=== PATIENT | female | born 1960 | race Caucasian/White ===

== ENCOUNTER 2020-12-24 14:54 | Outpatient (REF) | payer OTHER, SELFPAY ==
--- NOTE | ~2020-12-24 | MM_ITS ---
EXAMINATION: MM SCREENING DIGITAL BREAST TOMOSYNTHESIS, BILATERAL CLINICAL INFORMATION: Screening. Asymptomatic. The lifetime risk of breast cancer based on the Tyrer-Cuzick Model is 8.2%. COMPARISON: Mammography: December 19, 2019 and studies dating back to June 09, 2012 TECHNIQUE: Digital breast tomosynthesis is performed in both the craniocaudal and mediolateral oblique views along with computer-aided detection (CAD). Synthesized 2D images are generated from the tomosynthesis. FINDINGS: The breasts are heterogeneously dense, which may obscure small masses (ACR BI-RADS breast composition Category c). There are no significant masses, abnormal calcifications, or other abnormalities. MM/MM tomosynthesis screening BI IMPRESSION: There are no significant changes from prior study. ASSESSMENT: BI-RADS 1: Negative RECOMMENDATION: Routine annual mammography screening. This patient's information was entered into a reminder system with a target due date for their next mammogram.
== END 2020-12-24 14:55 | disposition home or self-care (01) ==
LOC: HO.MAMMO 14:54
PROVIDERS: Visit Provider Obstetrics & Gynecology Gynecology
DX: Z12.31 Encounter for screening mammogram for malignant neoplasm of breast (principal)
CPT/HCPCS: 77063; 77067

== ENCOUNTER 2022-01-16 08:47 | Outpatient (REF) | payer OTHER, SELFPAY ==
--- NOTE | ~2022-01-16 | XR_ITS ---
EXAMINATION: XR FOOT, RIGHT CLINICAL INFORMATION: M79.673 - Pain in unspecified foot COMPARISON: None TECHNIQUE: AP, lateral, and oblique views of the right foot. FINDINGS: The toes are superimposed on the lateral view. The oblique view the chest nondisplaced fracture of neck fourth toe proximal phalanx. No dislocation or destructive process. The remainder the bony structures appear intact. There is no erosive change. Mild hallux valgus of approximately 15 degrees. XR/XR foot RT min 3V IMPRESSION: -Suspect fracture neck fourth toe proximal phalanx. Clinically correlate. -Mild hallux valgus.
== END 2022-01-16 08:48 | disposition home or self-care (01) ==
LOC: HO.HOSX 08:47
PROVIDERS: Visit Provider Physician Assistant
DX: M79.671 Pain in right foot (principal)
CPT/HCPCS: 73630

== ENCOUNTER 2022-01-21 10:03 | Outpatient (REF) | payer OTHER, SELFPAY ==
--- NOTE | ~2022-01-21 | MM_ITS ---
EXAMINATION: MM SCREENING DIGITAL BREAST TOMOSYNTHESIS, BILATERAL CLINICAL INFORMATION: Screening. Asymptomatic. The lifetime risk of breast cancer based on the Tyrer-Cuzick Model is 10.4%. COMPARISON: Mammography: 12/24/2020 and studies dating back to 06/17/2014. TECHNIQUE: Digital breast tomosynthesis was performed in both the craniocaudal and mediolateral oblique views along with computer-aided detection (CAD). Synthesized 2D images were generated from the tomosynthesis. FINDINGS: There are scattered areas of fibroglandular density (ACR BI-RADS breast composition Category b). There is a stable parenchymal pattern of the right breast without new abnormal mass or suspicious grouping of microcalcifications.. About the deep superior medial aspect of the left breast, there is a region of architectural distortion which appears somewhat more prominent than on the prior study and appears to have a few calcifications within it. Recommend spot magnification views in 90 degree mediolateral view and craniocaudal view. MM/MM tomosynthesis screening BI IMPRESSION: Left breast density for further evaluation as described. ASSESSMENT: BI-RADS 0: Incomplete - Need Additional Imaging Evaluation RECOMMENDATION: 1. Additional views of the left breast. 2. Targeted ultrasound, if warranted, after review of the additional views. 3. Radiology department staff will contact the patient for additional imaging. This patient's information was entered into a reminder system with a target due date for their next mammogram.
== END 2022-01-21 10:04 | disposition home or self-care (01) ==
LOC: HO.MAMMO 10:03
PROVIDERS: PCP Physician Assistant Medical; Visit Provider Obstetrics & Gynecology
DX: Z12.31 Encounter for screening mammogram for malignant neoplasm of breast (principal)
CPT/HCPCS: 77063; 77067

== ENCOUNTER 2022-01-27 09:17 | Outpatient (REF) | payer OTHER, SELFPAY ==
--- NOTE | ~2022-01-27 | MM_ITS ---
EXAMINATION: MM DIAGNOSTIC DIGITAL MAMMOGRAPHY, LEFT CLINICAL INFORMATION: Recall from screening for question of architectural changes and calcifications upper inner left breast. TC score 10%. COMPARISON: Mammography: 01/21/2022 and multiple prior exams dating back to 05/01/2009. TECHNIQUE: Digital mammography is performed in the following views: Magnification CC, magnification ML. FINDINGS: There are scattered areas of fibroglandular density (ACR BI-RADS breast composition Category b). The parenchymal pattern is similar to multiple prior studies. There is no developing density or architectural abnormality. There is no interval mass or abnormal calcifications. There are no significant changes from prior studies. Results are discussed with the patient at time of visit. MM/MM added views LT IMPRESSION: Additional views show fibroglandular pattern similar to multiple prior exams. No developing density or architectural abnormality or abnormal calcifications. ASSESSMENT: BI-RADS 2: Benign RECOMMENDATION: Routine annual mammography screening. This patient's information was entered into a reminder system with a target due date for their next mammogram.
== END 2022-01-27 09:18 | disposition home or self-care (01) ==
LOC: HO.MAMMO 09:17
PROVIDERS: Visit Provider Obstetrics & Gynecology
DX: N64.89 Other specified disorders of breast (principal)
CPT/HCPCS: 77065

== ENCOUNTER 2022-12-11 06:17 | Outpatient (REF) | payer OTHER, SELFPAY ==
--- NOTE | ~2022-12-11 | XR_ITS ---
EXAMINATION: XR HAND, LEFT CLINICAL INFORMATION: Left hand pain. COMPARISON: None available. TECHNIQUE: PA, lateral, and oblique views of the left hand. FINDINGS: The bones and soft tissues are normal. No fracture. Alignment is anatomic. Joint spaces are maintained. No erosions or soft tissue calcifications. XR/XR hand LT min 3V IMPRESSION: Normal left hand.
== END 2022-12-11 06:18 | disposition home or self-care (01) ==
LOC: HO.HOSX 06:17
PROVIDERS: Visit Provider Physician Assistant
DX: M18.12 Unilateral primary osteoarthritis of first carpometacarpal joint, left hand (principal)
CPT/HCPCS: 73130

== ENCOUNTER 2023-02-12 08:08 | Outpatient (REF) | payer OTHER, SELFPAY ==
--- NOTE | ~2023-02-12 | MM_ITS ---
EXAMINATION: MM SCREENING DIGITAL BREAST TOMOSYNTHESIS, BILATERAL CLINICAL INFORMATION: Screening. Asymptomatic. COMPARISON: Mammography: This study is compared with prior exams dating back to 2010. TECHNIQUE: Digital breast tomosynthesis is performed in both the craniocaudal and mediolateral oblique views along with computer-aided detection (CAD). Synthesized 2D images are generated from the tomosynthesis. FINDINGS: There are scattered areas of fibroglandular density (ACR BI-RADS breast composition Category b). There is a 1 view asymmetry in the right breast anterior one third, medial aspect, seen best on the CC projection. No definite MLO correlate. Recommend small paddle spot compression view, as well as a 90 degree right mediolateral view. There are no suspicious findings in the left breast. Stable parenchymal pattern. MM/MM tomosynthesis screening BI IMPRESSION: 1 view asymmetry right breast anterior one third medially, for which spot compression cc view is recommended, as well as a full-field right mediolateral view. Ultrasound should be scheduled at the discretion of the interpreting radiologist. ASSESSMENT: BI-RADS BI-RADS 0 - Incomplete: Needs additional Imaging. RECOMMENDATION: 1. Additional views of the right breast. 2. Targeted ultrasound if warranted after review of the additional views. 3. Radiology department staff will contact the patient for additional imaging. Additional Imaging required This examination should not preclude the clinical evaluation of a suspicious palpable abnormality.
== END 2023-02-12 08:09 | disposition home or self-care (01) ==
LOC: HO.MAMMO 08:08
PROVIDERS: PCP Physician Assistant Medical; Visit Provider Physician Assistant Medical
DX: Z12.31 Encounter for screening mammogram for malignant neoplasm of breast (principal)
CPT/HCPCS: 77063; 77067

== ENCOUNTER → 2023-02-12 08:15 | Outpatient (BNV) | payer OTHER, SELFPAY | PROVIDERS: PCP Physician Assistant Medical; Visit Provider Radiology Diagnostic Radiology | DX: Z12.31 Encounter for screening mammogram for malignant neoplasm of breast (principal) | CPT/HCPCS: 77063; 77067 ==

== ENCOUNTER 2023-03-16 13:26 | Outpatient (REF) | payer OTHER, SELFPAY ==
--- NOTE | ~2023-03-16 | MM_ITS ---
EXAMINATION: MM DIAGNOSTIC DIGITAL BREAST TOMOSYNTHESIS, RIGHT CLINICAL INFORMATION: Follow-up one view asymmetry previously seen medial right breast, CC view only. COMPARISON: Mammography: Screening mammography 02/12/2023. TECHNIQUE: Digital breast tomosynthesis is performed. 2D images are generated from the tomosynthesis. The following views are obtained: Full-field 3-D digital right lateral medial view, full field 3-D digital right CC rolled medial and rolled lateral views, and 3-D right spot compression CC view. FINDINGS: There are scattered areas of fibroglandular density (ACR BI-RADS breast composition Category b). Additional views show no persistent mass, architectural abnormality, or abnormal calcifications. The previous finding in question is consistent with superimposition artifact of normal overlapping breast tissue. MM/MM tomosynthesis added views R IMPRESSION: No persistent findings suspicious for malignancy. Recommend the patient return to routine annual bilateral screening. ASSESSMENT: BI-RADS BI-RADS 1 - Negative RECOMMENDATION: 1 year F/U Results were provided to the patient at time of visit by the technologist. This patient's information was entered into a reminder system with a target due date for their next mammogram.
== END 2023-03-16 13:27 | disposition home or self-care (01) ==
LOC: HO.MAMMO 13:26
PROVIDERS: PCP Physician Assistant Medical; Visit Provider Physician Assistant Medical
DX: N64.89 Other specified disorders of breast (principal)
CPT/HCPCS: 77061; 77065

== ENCOUNTER → 2023-03-16 13:30 | Outpatient (BNV) | payer OTHER, SELFPAY | PROVIDERS: PCP Physician Assistant Medical; Visit Provider Radiology Diagnostic Radiology | DX: R92.8 Other abnormal and inconclusive findings on diagnostic imaging of breast (principal) | CPT/HCPCS: 77061; 77065 ==

== ENCOUNTER 2024-03-30 08:58 | Outpatient (REF) | payer OTHER, SELFPAY ==
--- NOTE | ~2024-03-30 | MM_ITS ---
EXAMINATION: MM SCREENING DIGITAL BREAST TOMOSYNTHESIS, BILATERAL CLINICAL INFORMATION: Screening. Asymptomatic. COMPARISON: Mammography: Comparison is made with available priors TECHNIQUE: Digital breast mammography with tomosynthesis is performed in both the craniocaudal and mediolateral oblique views along with computer-aided detection (CAD). FINDINGS: There are scattered areas of fibroglandular density (ACR BI-RADS breast composition Category b). There are no significant masses, abnormal calcifications, or other abnormalities. MM/MM tomosynthesis screening BI IMPRESSION: No mammographic evidence of malignancy. ASSESSMENT: BI-RADS BI-RADS 1 - Negative RECOMMENDATION: Routine annual mammography screening. 1 year F/U This examination should not preclude the clinical evaluation of a suspicious palpable abnormality. This patient's information was entered into a reminder system with a target due date for their next mammogram. Electronically signed by: Ivone Dubose DO 04/08/2024 01:49 PM EDT
== END 2024-03-30 08:59 | disposition home or self-care (01) ==
LOC: HO.MAMMO 08:58
PROVIDERS: Absent Provider Obstetrics & Gynecology; PCP Nurse Practitioner Primary Care; Visit Provider Nurse Practitioner Primary Care
DX: Z12.31 Encounter for screening mammogram for malignant neoplasm of breast (principal)
CPT/HCPCS: 77063; 77067

== ENCOUNTER → 2024-03-30 09:15 | Outpatient (BNV) | payer OTHER, SELFPAY | PROVIDERS: Absent Provider Obstetrics & Gynecology; PCP Nurse Practitioner Primary Care; Visit Provider Internal Medicine | DX: Z12.31 Encounter for screening mammogram for malignant neoplasm of breast (principal) | CPT/HCPCS: 77063; 77067 ==

== ENCOUNTER 2025-04-19 10:43 | Outpatient (REF) | payer MEDICARE, SELFPAY ==
--- OUTSIDE RECORDS SUMMARY | 2024-01-21 06:30 | XMS_ITS ---
Author Organization [facility] Address [address] [place] [address] Care Team Providers Care Emergency Vehicle Operations Instructor Name Role Phone IRAJ LOBATO, RA Primary Care Provider Unav ailable KOKO GOFF Unavailable [phone] REASON FOR VISIT Annual TAX ASSOCIATE ATTORNEY Physical Encounters Encounter Location Date Provider Diagnosis [facility] [address] [address] 01/21/2024 KOKO GOFF Encounter for gynecological examination (general) (routine) without abnormal findings Z01.419 ; Encounter for screening mammogram for malignant neoplasm of breast Z12.31 and Encounter for screening for infections with a predominantly sexual mode of transmission Z11.3 Assessments Encounter Date Diagnosis (ICD Code) Assessment Notes Treatment Notes Treatment Clinical Notes Section Notes 01/21/2024 Encounter for gynecological examination (general) (routine) without abnormal findings (ICD-10 - Z01.419) During the visit, the following areas of concern were addressed: Discussed cervical cancer screening with either cytology alone every 3 years or high risk HPV co-testing every 5 years as per ASCCP guidelines. Advised continued annual pelvic exams. Patient encouraged to increase her level of exercise. SBE technique encouraged/tau ght. Patient reminded when annual mammogram is due. Patient encouraged to keep colon screening up to date. 01/21/2024 Encounter for screening mammogram for malignant neoplasm of breast (ICD-10 - Z12.31) 01/21/2024 Encounter for screening for infections with a predominantly sexual mode of transmission (ICD-10 - Z11.3) Plan Of Treatment Treatment Notes Assessment Notes Encounter for gynecological examination (general) (routine) without abnormal findings During the visit, the following areas of concern were addressed: Discussed cervical cancer screening with either cytology alone every 3 years or high risk HPV co-testing every 5 years as per ASCCP guidelines. Advised continued annual pelvic exams. Patient encouraged to increase her level of exercise. SBE technique encouraged/taught. Patient reminded when annual mammogram is due. Patient encouraged to keep colon screening up to date. Pending Test Test Name Order Date MM Digital Screening Mammogram 3D 2023 Next Appt Details Follow Up: 1 Year, Reason: Y early Health Officer Exam Progress Notes * MONICA HOLTDOB:1960 ( 65 yo F)Acc No.[id number]:01/21/2024 PROGRESS NOTES Patient: MONICA DAS Provider: Marquis GOFF MD :1960 A ge:63 Y S ex:Female Date:01/21/2024 Address:[address] [place], [place] [id number] Pcp:RA GALO NP Subjective: * Chief Complaints: * 1 . Annual TAX ASSOCIATE ATTORNEY Physical. 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 S he has been in state of good health since her last exam. She has the following concerns: S he has received the Moderna Covid-19 vaccine R elationship status: * for 36 years. She is sexually active. Sexual partner(s): male. She does not wish to have STI testing. S he does *still have report vaginal dryness. She has been on Yuvafem with reasonably good effect. She would like a refill. She does not have hot flashes/night sweats. T he patient has never had an abnormal pap smear. Her most recent pap smear was 12/25/20 - NIL, neg HR HPV. Next due for cotesting in 2025. S he has not been diagnosed with breast cancer. She does have a family history of breast cancer - maternal aunt. Her last mammogram was 02/12/23, with followup views on 03/16/23 at [facility]. S he does have a family history of colon cancer - [facility]. She a has had a colonoscopy. The last colonoscopy was 2016. Followup in 10 yrs. T he patient does* exercise. She exercises x 3-5 days/week by walking 20 min at a fast pace. * ROS: A nnual Health Officer Exam ROS: Bowel habit changes d enies. B ladder symptoms d enies. V aginal discharge, unusual d enies. V aginal itch or odor d enies. w eight or appetite changes d enies. C hest pains, SOB d enies. d epression d enies.? B reast: Denies B reast lump. D enies N ipple discharge.? H ematology: Denies S wollen glands. S kin: Patient denies c hanging moles. P sychiatric: Denies A nxiety. * Medical History: * Health Officer History: G ravida/ Para 0 /0. S exual activity c urrently sexually active. L ast Pap Smear: , NIL, HPV NEG, 07/2015 NIL, NEG HRHPV. M ammogram: < 50% density, 12/24/2020, 12/19/19 < 50% density, 10/26/18 < 50% density, normal (3D done). A bnormal Pap Smear: n o history of abnormal pap smears. L MP and menses m enopause age 51. H istory of STD's: n one. C olonoscopy 2 017, normal. B one Density: , 09/06/18 shows T score spine -2.2, LFN -2.3, total hip -1.0. Compared with 2016, this shows -3.2% at spine, -2.1% at hip and -3.6% at L FN. FRAX score 17/1.5%2016 Tscore spine -2.2, LFN -2.1 FRAX 7.3/0.9.2010 spine -1.9, LFN -2.1. * OB History: T otal pregnancies G 0 P0000. Objective: * Vitals: * Examination: G eneral Examination: GENERAL APPEARANCE: i n no acute distress, well developed, well nourished, floor trader present in room. HEAD: n ormocephalic, atraumatic. NECK/THYROID: n avelino supple, full range of motion, thyroid normal. LYMPH NODES: n o axillary or supraclavicular adenopathy.? SKIN: normal, good turgor, no rashes, no suspicious lesions. BREASTS: normal, no dimpling, no discharge, no drainage, no masses palpable bilaterally, nontender. ABDOMEN: soft, non-tender, non distended without masses or hepatosplenomegay. RECTAL: normal tone, no masses palpable. BACK: no costovertebral angle tenderness. FEMALE GENITOURINARY: V ulva without lesions or masses, vagina pink without abnormal discharge, lesions or masses, cervix appears normal and is not tender to palpation, uterus is normal size, mobile, nontender and anteverted, ovaries are not palpable. NEUROLOGIC: alert and oriented, gait normal. PSYCH: alert, oriented, cognitive function intact, cooperative with exam, good eye contact, mood/affect full range, speech clear. Assessment: * Assessment: 1. E ncounter for gynecological examination (general) (routine) without abnormal findings - Z01.419 (Primary) 2 . E ncounter for screening mammogram for malignant neoplasm of breast - Z12.31 3 . E ncounter for screening for infections with a predominantly sexual mode of transmission - Z11.3 Plan: * Treatment: 2. E ncounter for screening mammogram for malignant neoplasm of breast I maging: MM Digital Screening Mammogram 3D * Follow Up: 1 Year (Reason: Yearly Health Officer Exam) * Images: Billing Information: * Visit Code: [id number] Preventive Care Est Pt. Age 40-64. 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 She has been in state of good health since her last exam. She has the following concerns: She has received the Moderna Covid-19 vaccine Relationship status: * for 36 years. She is sexually active. Sexual partner(s): male. She does not wish to have STI testing. She does *still have report vaginal dryness. She has been on Yuvafem with reasonably good effect. She would like a refill. She does not have hot flashes/night sweats. The patient has never had an abnormal pap smear. Her most recent pap smear was 12/25/20 - NIL, neg HR HPV. Next due for cotesting in 2025. She has not been diagnosed with breast cancer. She does have a family history of breast cancer - maternal aunt. Her last mammogram was 02/12/23, with followup views on 03/16/23 at [facility]. She does have a family history of colon cancer - [facility]. She a has had a colonoscopy. The last colonoscopy was 2016. Followup in 10 yrs. The patient does* exercise. She exercises x 3-5 days/week by walking 20 min at a fast pace. Examination Category Sub-Category Detail Notes Category Not es General Examination GENERAL APPEARANCE: in no ac johann distress, well developed, well nourished, floor trader present in room HEAD: normocephalic, atrau matic NECK/THYROID: neck supple, full ra nge of motion, thyroid normal ABDOMEN: soft, non-tender, no n distended without masses or hepatosplenomegay NEUROLOGIC: alert and oriented, gait normal SKIN: normal, good turgor, no rashes, no suspicious lesions BACK: no costovertebral an gle tenderness BREASTS: normal, no dimpling, no discharge, no drainage, no masses palpable bilaterally, nontender LYMPH NODES: no axillary or supra clavicular adenopathy RECTAL: normal tone, no mass es palpable PSYCH: alert, oriented, cog nitive function intact, cooperative with exam, good eye contact, mood/affect full range, speech clear FEMALE GENITOURINARY: Vulva without lesi ons or masses, vagina pink without abnormal discharge, lesions or masses, cervix appears normal and is not tender to palpation, uterus is normal size, mobile, nontender and anteverted, ovaries are not palpable
--- OUTSIDE RECORDS SUMMARY | 2025-04-19 13:44 | XMS_ITS | Patient Health Record ---
Author Organization [facility] Address [address] [place] [address] Care Team Providers Care Plumber Name Role Phone IRAJ LOBATO, RA Primary Care Provider Unav ailable KOKO GOFF Unavailable [phone] Allergies No Known Allergies Reason For Referral No Information Medications Medication SIG (Take, Route, Frequency, Duration) Notes Start Date End Date Status rOPINIRole HCl 0.5 MG Orally Active Yuvafem 10 MCG 1 tablet Vaginal Thr ee times a Week; Duration: 90 days 01/13/2022 Not-Taking Atorvastatin Calcium 10 MG 1 tablet Orally Once a day; Duration: 30 day(s) Active Omeprazole Active Social History Sexual History Question Answer Notes Had sex in the past 12 months (vaginal, oral, or anal)? Yes with Men only Prevention strategies discussed: Other Tobacco use other than smoking: Question Answer Notes Are you an other tobacco user? No AUDIT-C (Standard) Question Answer Notes Did you have a drink contain ing alcohol in the past year? Yes How often did you have six o r more drinks on one occasion in the past year? Never (0 point) How many drinks did you have on a typical day when you were drinking in the past year? 1 or 2 drinks (0 point) How often did you have a dri nk containing alcohol in the past year? 2 to 3 times a week (3 points) Points 3 Interpretation Positive Problems Problem Type SNOMED Code ICD Code Onset Dates Problem Status W/U Status Risk Notes Problem Postmenopausal atrophic vaginitis (31944091) Postmenopausal atrophic vaginitis (N95.2) Active confirmed Problem Restless legs syndrome (46177750) Restless legs syndrome (G25.81) Active confirmed Problem Gastro-esophageal reflux disease with esophagitis (213453807) Gastro-esophageal reflux disease with esophagitis (K21.0) Active confirmed Problem COVID-19 (027913946) COVID-19 (U07.1) Active confirmed Vital Signs Temperature 98.0 degrees Fahrenheit 03/14/2025 Blood pressure diastolic 72 mm Hg 03/14/2025 Height 63 in 03/14/2025 Blood pressure systolic 118 mm Hg 03/14/2025 Weight 120 lbs 03/14/2025 BMI 21.25 kg/m2 03/14/2025 Encounters Encounter Location Date Provider Diagnosis [facility] [employer] [address] [place] [address] 03/14/2025 KOKO GOFF Encounter for gynecological examination (general) (routine) without abnormal findings Z01.419 and Encounter for screening mammogram for malignant neoplasm of breast Z12.31 Assessments Encounter Date Diagnosis (ICD Code) Assessment Notes Treatment Notes Treatment Clinical Notes Section Notes 03/14/2025 Encounter for gynecological examination (general) (routine) without abnormal findings (ICD-10 - Z01.419) During the visit, the following areas of concern were addressed: Discussed sstopping cervical cancer screening as per ASCCP guidelines. Advised continued annual pelvic exams. Patient encouraged to increase her level of exercise. SBE technique encouraged/tau ght. Patient reminded when annual mammogram is due. Patient encouraged to keep colon screening up to date. 03/14/2025 Encounter for screening mammogram for malignant neoplasm of breast (ICD-10 - Z12.31) Plan Of Treatment Pending Test Test Name Order Date Bone Density 12/25/2020 25OH VITAMIN D 12/14/2018 CALCIUM 12/14/2018 LIPID PANEL-B 12/14/2018 N-TELOPEPTIDE CROSS 12/14/2018 PTH, INTACT 12/14/2018 TSH 12/14/2018 BONE DENSITY 12/08/2017 BONE DENSITY 08/18/2018 BONE DENSITY 08/21/2015 MM Digital Screening Mammogram 3D 2021 MM Digital Screening Mammogram 3D 2022 MM Digital Screening Mammogram 3D 2023 MM Digital Screening Mammogram 3D 2024 Insurance Providers Payer Name Payer Address Payer Phone Subscriber Number Group Number Insured Name Patient Relationship to Insured Coverage Start Date Coverage End Date [employer] MEDICARE PPO [address] [place] [address] [id number] CARRINGTON HOLT Self - patient is the insured Medical (General) History Medical History History ICD Code Gastro-esophageal reflux disease with es ophagitis K21.0 Restless legs syndrome G25.81 Postmenopausal atrophic vaginitis N95.2 Disorder of bone density and structure, unspecified M85.9 COVID-19 U07.1 Surgical History Surgery Date(Month/Year) Right Ovarian Cyst Removed 2000 Colonoscopy 2016
== END 2025-04-19 10:44 | disposition home or self-care (01) ==
LOC: HO.MAMMO 10:43
PROVIDERS: PCP Nurse Practitioner Primary Care; Visit Provider Nurse Practitioner Primary Care
DX: Z12.31 Encounter for screening mammogram for malignant neoplasm of breast (principal)
CPT/HCPCS: 77063; 77067

== ENCOUNTER → 2025-04-19 10:45 | Outpatient (BNV) | payer MEDICARE, SELFPAY | PROVIDERS: PCP Nurse Practitioner Primary Care; Visit Provider Radiology Body Imaging | DX: Z12.31 Encounter for screening mammogram for malignant neoplasm of breast (principal) | CPT/HCPCS: 77063; 77067 ==